=== PATIENT | male | born 1980 | race Caucasian/White ===

== ENCOUNTER 2018-08-11 01:52 | Emergency (ER) | END 2018-08-11 04:00 | disposition home or self-care (01) ==

== ENCOUNTER 2018-08-22 08:21 | Emergency (ER) | END 2018-08-22 11:05 | disposition home or self-care (01) ==

== ENCOUNTER 2019-03-22 16:06 | Emergency (ER) | payer MEDICAID ==
[~2019-03-22] VITALS: Ht 167.6 cm; Wt 85.0 kg
[~2019-03-22 16:06] MED LIST: ACET500C5 PO; DOCU-144 PO; HYDR-4011 PO; IBUP-1542 PO
[2019-03-22 16:16] VITALS: Ht 167.6 cm; Wt 85.0 kg
[2019-03-22] MEDS ORDERED: KETOROLAC 30 MG INJ IM STA (16:29)
[2019-03-22] MEDS ORDERED: LIDOCAINE 1% (MDV) 20 ML INJ SC ONE (19:00)
[2019-03-22] MEDS ORDERED: BUPIVACAINE 0.5% (SDV) 30 ML INJ INJ ONE (19:00)
--- NOTE | 2019-03-22 21:27 | ERD ---
ER Documentation Chief Complaint Chief Complaint left ankle pain s/p fall last night, no ko HPI 38-year-old male with no significant past medical history presents for left ankle pain status post fall last night. He states that [place] and twisted his ankle. He also hit his forehead and nose on the ground. He admits to 10/10 pain over the left ankle with swelling. Pain is sharp, worse with movement. He has 6/10 pain over the forehead and nose area. There are some cuts over his nose which he cleaned with water. Denies loss of consciousness, denies vomiting. Denies fever, chest pain, shortness of breath, abdominal pain, nausea, vomiting. No other modifying factors noted, no treatment tried at home. ROS All systems reviewed and are negative except as per history of present illness. Medications Home Meds Active Scripts Docusate Sodium* (Colace*) 100 Mg Capsule, 100 MG PO TID, #30 CAP Prov:KESHAWN SAWYER PA-C 08/22/18 Ibuprofen* (Motrin*) 600 Mg Tab, 600 MG PO Q6H PRN for PAIN AND OR ELEVATED T EMP, #30 TAB Prov:KESHAWN SAWYER PA-C 08/22/18 Hydrocodone/Acetaminophen (Alma 5-325 Tablet) 1 Each Tablet, 1 TAB PO Q6H PRN for PAIN, #30 TAB Prov:KESHAWN SAWYER PA-C 08/22/18 Acetaminophen* (Tylophen*) 500 Mg Capsule, 1 CAP PO Q6H PRN for PAIN AND OR ELEVATED TEMP, #20 CAP Prov:DE GOSS PA-C 08/11/18 Allergies Allergies: Coded Allergies: No Known Allergy (Unverified , 08/22/18) PMhx/Soc Medical and Surgical Hx: pt denies Medical Hx History of Surgery: Yes (UMBILICAL HERNIA) Hx Alcohol Use: Yes (social) Hx Substance Use: No Hx Tobacco Use: No Smoking Status: Former smoker FmHx Family History: No coronary disease Physical Exam Vitals Vital Signs Date Temp Pulse Resp B/P (MAP) Pulse Ox O2 O2 Flow FiO2 Time Delivery Rate 03/22/19 99.1 62 20 153/79 98 Room Air 21:15 (103) 03/22/19 99.7 101 20 178/102 98 16:16 (127) Physical Exam Const: No acute distress Head: Atraumatic, no luis sign,no scalp depression noted, ecchymosis noted over the right orbital area Eyes: Normal Conjunctiva, PERRL, EOMI, some ecchymosis around the right eye ENT: Normal External Ears, abrasions noted over the bridge of the nose. no fluid leak from ear canals or nose. moves air well through nares, Oral mucosa moist without signs of trauma or lesions Neck: Full range of motion. No meningismus. no midline tenderness Resp: Clear to auscultation bilaterally, normal respiratory effort Cardio: Regular rate and rhythm, no murmurs, bilateral radial and dorsalis pedis pulses intact Abd: Soft, non tender, non distended. Normal bowel sounds Skin: No petechiae or rashes Back: No midline or flank tenderness Ext: No cyanosis, or edema, 5/5 muscle strength upper and lower extremities, there is decreased range of motion of the left ankle with significant amount of swelling noted, compartments are soft however. Neur: Awake and alert, bilateral upper and lower extremity sensation intact Psych: Normal Mood and Affect Lower Extremity -left: Skin: No laceration, there is abrasion noted over the medial side of the left ankle Compartments: Soft Motor: Full active range of motion hip/knee/decreased range of motion over the left ankle and left foot due to swelling Sensation: Intact to light touch FDWS/MF/LF/P surfaces. Bones: Nontender pelvis/knee/proximal tibia/there is pain to palpation over the left ankle diffusely Joints: There is effusion noted over the left foot, left ankle and left lower leg Pulses/Perfusion: 2+ DP, Capillary refill < 2 seconds Result Diagram: 03/22/19210903/22/192109 Results 24 hrs Laboratory Tests Test 03/22/19 21:10 White Blood Count 9.9 10^3/ul Red Blood Count 4.77 10^6/ul Hemoglobin 15.7 g/dl Hematocrit 47.1 % Mean Corpuscular Volume 98.7 fl Mean Corpuscular Hemoglobin 32.9 pg Mean Corpuscular Hemoglobin Concent 33.3 g/dl Red Cell Distribution Width 13.0 % Platelet Count 209 10^3/UL Mean Platelet Volume 9.8 fl Immature Granulocytes % 0.700 % Neutrophils % 51.8 % Lymphocytes % 32.0 % Monocytes % 14.6 % Eosinophils % 0.3 % Basophils % 0.6 % Nucleated Red Blood Cells % 0.0 /100WBC Immature Granulocytes # 0.070 10^3/ul Neutrophils # 5.1 10^3/ul Lymphocytes # 3.2 10^3/ul Monocytes # 1.5 10^3/ul Eosinophils # 0.0 10^3/ul Basophils # 0.1 10^3/ul Nucleated Red Blood Cells # 0.0 10^3/ul Prothrombin Time 12.5 Sec Prothrombin Time Ratio 1.0 INR International Normalized Ratio 0.92 Activated Partial Thromboplast Time 22.6 Sec Sodium Level 139 mmol/L Potassium Level 4.1 mmol/L Chloride Level 105 mmol/L Carbon Dioxide Level 24 mmol/L Anion Gap 10 Blood Urea Nitrogen 16 mg/dl Creatinine 0.56 mg/dl Est Glomerular Filtrat Rate mL/min > 60 mL/min Glucose Level 94 mg/dl Calcium Level 8.9 mg/dl Total Bilirubin 0.8 mg/dl Direct Bilirubin 0.00 mg/dl Indirect Bilirubin 0.8 mg/dl Aspartate Amino Transf (AST/SGOT) 48 IU/L Alanine Aminotransferase (ALT/SGPT) 52 IU/L Alkaline Phosphatase 101 IU/L Total Protein 7.9 g/dl Albumin 4.2 g/dl Globulin 3.70 g/dl Albumin/Globulin Ratio 1.13 Current Medications Medications Dose Sig/Dariusz Start Time Status Last (Trade) Ordered Route PRN Stop Time Admin Dose Reason Admin Ketorolac 30 mg ONCE STAT 03/22/19 DC 03/22/19 Tromethamine IM 16:29 16:38 (Toradol) 03/22/19 16:31 Lidocaine 20 ml ONCE ONCE 03/22/19 DC (Xylocaine SC 19:00 1% (Mdv) 20 03/22/19 19:01 ml) Bupivacaine 30 ml ONCE ONCE 03/22/19 DC HCl INJ 19:00 (Marcaine 03/22/19 19:01 0.5% (Sdv)) Ondansetron 4 mg BRIDGE ORDER 03/22/19 HCl (Zofran PRN IV 21:30 Inj) NAUSEA/VOMITI 03/23/19 21:29 NG 650 mg ER BRIDGE 03/22/19 Acetaminophen PRN PO 21:30 (Tylenol .MILD PAIN 03/23/19 21:29 Tab) 1-3 OR TEMP Procedures/MDM Medical Decision Making: Differential diagnosis includes but not limited to fracture, dislocation, muscle strain, ligamentous sprain, septic joint, osteomyelitis, gout Patient appeared well on physical exam. There was tenderness over the left ankle Patient was neurovascularly intact, compartment soft There is also abrasion over the bridge of the nose and ecchymosis over the right orbital area ED course: Imaging: X-ray left ankle 3V, read by radiology, Interpreted by me: Triamalleolar fracture of the left ankle with displacement of the distal left tibia and fibula, with severe soft tissue swelling noted, joint space narrowing with severe subluxation of the left tibiotalar joint space X-ray left foot 3V read by radiology, Interpreted by me: Bones: No fracture Joints: No dislocation Foreign body: None X-ray left tib/Fib 2V Interpreted by me: Bones: No fracture Joints: No dislocation Foreign body: None Head CT without IV contrast read per radiology did not show signs of hemorrhage, no lesions noted, no mass effect EKG: Rate/Rhythm: Normal Sinus Rhythm QRS, ST, T-waves: No changes consistent w/ acute ischemia Impression: No evidence of ischemia or arrhythmia CBC: no e/o of systemic infection or severe anemia CMP: no e/o severe acidosis, alkalosis, renal failure, diabetic ketoacidosis, liver disease PT/INR within normal limits PTT mildly elevated at 22.6 Given the severity of the ankle fracture, will call orthopedic surgeon Dr. Borja was consulted. Patient was seen by Dr. Borja, patient's displaced left ankle fracture was reduced, please see his note. Dr. Borja recommended admission for ORIF due to the instability of the fracture call center trainer hospitalist Dr. Coelman was contacted and agreed to admit patient for further care. Disclaimer: Inadvertent spelling and grammatical errors are likely due to EHR/di ctation software use and do not reflect on the overall quality of patient care. Also, please note that the electronic time recorded on this note does not necessarily reflect the actual time of the patient encounter. Departure Diagnosis: Primary Impression: Displaced trimalleolar fracture of left ankle Encounter type: initial encounter Fracture type: closed Qualified Codes: S82.852A - Displaced trimalleolar fracture of left lower leg, initial encounter for closed fracture Additional Impressions: Head injury Encounter type: initial encounter Qualified Codes: S09.90XA - Unspecified injury of head, initial encounter Abrasion of ankle Encounter type: initial encounter Laterality: left Qualified Codes: S90.512A - Abrasion, left ankle, initial encounter Facial abrasion Encounter type: initial encounter Qualified Codes: S00.81XA - Abrasion of other part of head, initial encounter Condition: Serious MITUL CARTER DO Mar 22, 2019 21:27
--- NOTE | 2019-03-22 21:28 | CONS ---
Assessment/Plan Assessment/Plan Hospital Course (Demo Recall) 38-year-old male with bimalleolar SER type IV left ankle fracture. It is closed. This is an unstable ankle fracture pattern. Strongly recommended that he undergo ORIF of the left ankle fracture after preliminary closed reduction in the ED. Reviewed the benefits and risks with the patient. They include but not limited to complication of anesthesia, medical complications, cardiopulmonary complicati ons, DVT, , infection, malunion, nonunion, hardware failure, neurovascular injury, stiffness, pain, traumatic arthritis, and need for repeat surgery. Patient understood these benefits and risks and wished to proceed with surgery. Plan: Closed reduction and short leg splint in the emergency department Strict elevation and icing Pain control Plan for open reduction internal fixation of left bimalleolar ankle fracture. We will plan for Friday as there is no operating room availability for Friday. N.p.o. at midnight prior to surgery Assessment/Plan (Daily) Procedure: Hematoma block and closed reduction and short leg splint left ankle fracture Anteromedial aspect of the left ankle was prepped with alcohol. 3 mL of 1% lidocaine was infiltrated into the skin and subcutaneous tissue. Once this was done approximately 15 mL of a 1: 1 ratio of 1% lidocaine and 0.5% bupivacaine was injected into the ankle joint and fracture. Hematoma was visualized confirming positioning of the needle. Local anesthetic fluid freely. Once the ankle was numb we proceeded fashion splint and closed reduced. The left lower extremity was wrapped in Webril. Special attention was given to the medial and lateral malleoli as well as the heel. A sugar tong splint of plaster was fashioned with a three-point mold. The ankle was felt to be reduced. Ankle is held in neutral dorsiflexion with a three-point mold until the plaster hardened. General: Awake, alert, in no acute distress, pleasant and cooperative Heart: regular rhythm Lungs: breathing comfortably, no tachypnea or dyspnea Sensation intact to light touch in a sural, saphenous, deep peroneal, superficial peroneal, medial and lateral plantar nerve distribution. Motor is intact, patient able to extend and flex great toe. Brisk capillary refill. Consultation Date/Type/Reason Admit Date/Time Date of Consultation: Mar 22, 2019 Reason for Consultation Left ankle fracture Date/Time of Note DATE: 03/22/19 TIME: 21:03 Hx of Present Illness 38-year-old male who was walking in [place] over some rocks along the beach. He tripped and twisted his left ankle. He had severe pain. He was unable to bear weight. He presented to the emergency department [facility] where orthopedics was consulted. He also fell on his face and had superficial abrasions and ecchymosis around his right eye. Patient denies any loss of consciousness or any dizziness or lightheadedness. Patient also complains of pain in the left ankle. Denies any numbness and tingling. Pain is rated 10/10. 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 No history of previous injury to the left lower extremity. Patient denies fever, chills, shortness of breath, chest pain, nausea/vomiting, constipation, diarrhea, numbness, and tingling. Past Medical History Denies past medical history Home Meds Active Scripts Docusate Sodium* (Colace*) 100 Mg Capsule, 100 MG PO TID, #30 CAP Prov:KESHAWN SAWYER PA-C 08/22/18 Ibuprofen* (Motrin*) 600 Mg Tab, 600 MG PO Q6H PRN for PAIN AND OR ELEVATED TEMP, #30 TAB Prov:KESHAWN SAWYER PA-C 08/22/18 Hydrocodone/Acetaminophen ([place]ion 5-325 Tablet) 1 Each Tablet, 1 TAB PO Q6H PRN for PAIN, #30 TAB Prov:KESHAWN SAWYER PA-C 08/22/18 Acetaminophen* (Tylophen*) 500 Mg Capsule, 1 CAP PO Q6H PRN for PAIN AND OR ELEVATED TEMP, #20 CAP Prov:DE GOSS PA-C 08/11/18 Allergies: Coded Allergies: No Known Allergy (Unverified , 08/22/18) Past Surgical History Past Surgical Hx: noncontributory Family History Significant Family History: no pertinent family hx Social History Alcohol Use: heavy (6 drinks a week) Smoking Status: Former smoker Drug Use: none Exam/Review of Systems Exam Vitals Vital Signs Date Temp Pulse Resp B/P (MAP) Pulse Ox O2 O2 Flow FiO2 Time Delivery Rate 03/22/19 99.7 101 20 178/102 98 16:16 (127) Exam General: Awake, alert, in no acute distress, pleasant and cooperative Heart: regular rhythm Lungs: breathing comfortably, no tachypnea or dyspnea MUSCULOSKELETAL: Left lower extremity: There is a superficial abrasion over the anteromedial aspect of the ankle. Otherwise the skin is intact. There is significant swelling with ecchymosis along the medial and lateral aspect of the ankle and foot. There is tenderness palpation throughout the ankle. The foot is nontender to palpation. The tibia and mid and proximal fibula are nontender. The knee is nontender with no effusion. Sensation intact to light touch in a sural, saphenous, deep peroneal, superficial peroneal, medial and lateral plantar nerve distribution. Motor is intact, patient able to dorsiflex and plantarflex ankle and extend and flex great toe. Dorsalis Pedis pulse +2, Brisk capillary refill. Compartments are soft. Calves non-tender to palpation bilaterally. Imaging Imaging 3 views of the left ankle, foot, and 2 views of the left tib-fib were personally reviewed: Demonstrate a bimalleolar ankle fracture with significant subluxation of the tibiotalar joint laterally. There is increased medial clear space as well as decreased overlap of the tib-fib. Adams type B/C. SER type IV 3 views postreduction films left ankle were obtained and personally reviewed: Redemonstration of bimalleolar ankle fracture SER type IV. There is near anatomic reduction MACIEL BRIZUELA MD Mar 22, 2019 21:25
[2019-03-22] MEDS ORDERED: ONDANSETRON 4 MG INJ IV PRN ×2 (21:30→22:30)
[2019-03-22] MEDS ORDERED: ACETAMINOPHEN 325 MG TAB PO PRN ×2 (21:30→22:30)
--- NOTE | 2019-03-22 22:21 | HP ---
Date/Time of Note Date/Time of Note DATE: 03/22/19 TIME: 22:20 Assessment/Plan VTE Prophylaxis SCD applied (from Nsg): Yes Pharmacological prophylaxis: NA/contraindicated Pharm contraindication: low risk/ambulating Lines/Catheters IV Catheter Type (from Nrsg): Saline Lock Assessment/Plan Hospital Course This is a 38-year-old male being admitted to the [facility] for: #1 Acute left ankle fracture: X-ray shows: Trimalleolar fracture of the distal left ankle. Significantly displaced fractures of the distal left tibia and fibula. Orthopedic surgery was consulted, evaluated the patient and reduce the patient's fracture. Elevation of the left lower extremity, and ice to the left lower extremity. Further orders as per orthopedic surgery. Patient is tentatively scheduled for surgery on 03/24/2019. He will be kept n.p.o. after midnight on 03/24/2019. Pain management. Patient is a fully functioning independent male. He is able to walk up and down stairs without any shortness of breath or chest pain. His functional capacity is METS greater than 4. He is tentatively cleared for surgery pending chest x- ray which has been ordered for preop. #2 facial trauma: Patient does have superficial bruising and ecchymosis on his face, he does have pending facial CT results. CT of the brain is negative for any acute normalities. We will follow-up with CT results. #3 obesity: We will check hemoglobin A 1C, lipid panel, TSH #4 DVT GI prophylaxis: SCDs, no GI prophylaxis indicated Further treatment strategy will be implemented as per the clinical course. Result Diagram: 03/22/19210903/22/192109 Results 24hrs Laboratory Tests Test 03/22/19 21:10 White Blood Count 9.9 Red Blood Count 4.77 Hemoglobin 15.7 Hematocrit 47.1 Mean Corpuscular Volume 98.7 Mean Corpuscular Hemoglobin 32.9 Mean Corpuscular Hemoglobin Concent 33.3 Red Cell Distribution Width 13.0 Platelet Count 209 Mean Platelet Volume 9.8 Immature Granulocytes % 0.700 H Neutrophils % 51.8 Lymphocytes % 32.0 Monocytes % 14.6 H Eosinophils % 0.3 Basophils % 0.6 Nucleated Red Blood Cells % 0.0 Immature Granulocytes # 0.070 H Neutrophils # 5.1 Lymphocytes # 3.2 H Monocytes # 1.5 H Eosinophils # 0.0 Basophils # 0.1 Nucleated Red Blood Cells # 0.0 Prothrombin Time 12.5 Prothrombin Time Ratio 1.0 INR International Normalized Ratio 0.92 Activated Partial Thromboplast Time 22.6 L Sodium Level 139 Potassium Level 4.1 Chloride Level 105 Carbon Dioxide Level 24 Anion Gap 10 Blood Urea Nitrogen 16 Creatinine 0.56 L Est Glomerular Filtrat Rate mL/min > 60 Glucose Level 94 Calcium Level 8.9 Total Bilirubin 0.8 Direct Bilirubin 0.00 Indirect Bilirubin 0.8 Aspartate Amino Transf (AST/SGOT) 48 H Alanine Aminotransferase (ALT/SGPT) 52 Alkaline Phosphatase 101 Total Protein 7.9 Albumin 4.2 Globulin 3.70 H Albumin/Globulin Ratio 1.13 HPI/ROS Admit Date/Time Admit Date/Time Hx of Present Illness Chief complaint: Fall, left ankle pain, facial pain This is a 38-year-old male with no significant past medical history presents for left ankle pain status post fall last night. He states that [place], slipped and twisted his ankle. He also hit his forehead and nose on the ground. He admits to 10/10 pain over the left ankle with swelling. Pain is sharp, worse with movement. He has 6/10 pain over the forehead and nose area. There are some cuts over his nose which he cleaned with water. Denies loss of consciousness, denies vomiting. Denies fever, chest pain, shortness of breath, abdominal pain, nausea, vomiting. Patient was seen and evaluated by orthopedic surgery in the emergency department and patient had his ankle fracture reduced. Patient was to be admitted to [facility] to undergo surgical repair of the fracture. Prior to his injury, patient states that he is a normally active male who is able to walk up and down stairs without any chest pain or shortness of breath. Patient is a fully functioning independent male. Allergies: NKDA Medications: None ROS Const: As per HPI Eyes : No pain discharge or redness or change in visual acuity ENT: No pain, sore throat, congestion, congestion, dysphagia or discharge Respiratory: No shortness of breath, cough, sputum, wheezing, or pleuritic pain Cardiovascular: No chest pain, palpitation, PND, or edema GI : no change in appetite, abdominal pain, nausea, vomiting, diarrhea, constipation, or change in the color his stool Genitourinary: No dysuria, hematuria, flank pain , discharge or CVA tenderness Musculoskeletal: As per HPI Skin: No rash, bruising or hives Neuro: No headache, dizziness, syncope, seizure, focal weakness Endocrine: No polyuria, polydipsia, temperature intolerance Psych: No hallucination, depression, anxiety or suicidal ideation PMH/Family/Social Past Medical History Medical History: no pertinent history Medications Current Medications Ondansetron HCl (Zofran Inj) 4 mg BRIDGE ORDER PRN IV NAUSEA/VOMITING; Start 03/22/19 at 21:30; Stop 03/23/19 at 21:29 Acetaminophen (Tylenol Tab) 650 mg ER BRIDGE PRN PO .MILD PAIN 1-3 OR TEMP; Start 03/22/19 at 21:30; Stop 03/23/19 at 21:29 Coded Allergies: No Known Allergy (Unverified , 08/22/18) Past Surgical History Past Surgical Hx: noncontributory Family History Significant Family History: no pertinent family hx Social History Alcohol Use: occasionally (6 drinks a week) Smoking Status: Unknown if ever smoked Drug Use: none Exam/Review of Systems Vital Signs Vitals Vital Signs Date Temp Pulse Resp B/P (MAP) Pulse Ox O2 O2 Flow FiO2 Time Delivery Rate 03/22/19 99.1 62 20 153/79 98 Room Air 21:15 (103) Exam Exam General: Patient is a pleasant male currently lying in bed in no acute distress HEENT: Multiple bruising, superficial abrasions noted of the face, ecchymosis noted of the right eyelid, no luis sign Neck: Supple with full range of motion. No rigidity or meningismus Chest: Nontender Lungs: Clear to auscultation bilaterally no crackles rales or wheezing Heart: Normal S1-S2, Regular rhythm and rate. No murmur, S3, or S4 Abdomen: Soft , nontender, nondistended , bowel sounds are present. No guarding no rebound tenderness , No masses or organomegaly. No costovertebral temporal angle mass Extremities: Left lower extremity currently in a cast, patient able to wiggle his toes, skin warm Neurologic: Normal mental status, speech normal, cranial nerves II through XII are intact, motor and sensory are intact, Additional Comments EKG: Rate/Rhythm: Normal Sinus Rhythm QRS, ST, T-waves: No changes consistent w/ acute ischemia Impression: No evidence of ischemia or arrhythmia PROCEDURE: CT Brain without contrast. CLINICAL INDICATION: Trauma. Headache. TECHNIQUE: A CT of the brain without contrast was performed utilizing axial sections from the skull base through the vertex. The patient was scanned without intravenous contrast enhancement. Sagittal and coronal reformatted images were obtained using the data from the axial images. Total exam DLP is 634.23 mGy-cm. CTDIvol is 37.91 mGy. One or more of the following dose reduction techniques were used: Automated exposure control, adjustment of the mA and/or kV according to patient size, use of iterative reconstruction technique. DICOM images are available. COMPARISON: None available FINDINGS: There is normal lilly-white matter differentiation. The ventricles and cisterns are normal. There is no intracranial hemorrhage or space-occupying lesion. There is no skull fracture or lytic lesion. IMPRESSION: 1. Normal noncontrast CT scan of the brain. 2. No intracranial hemorrhage. RPTAT: QQ .Gerardo Beauchamp MD, MD Date Time Electronically viewed and signed by .Gerardo Beauchamp MD, MD on 03/22/2019 21:42 .R/ CC: MITUL CARTER [id number] PROCEDURE: XR Ankle. CLINICAL INDICATION: Left ankle pain. Trauma. TECHNIQUE: Three views of the left ankle were performed. COMPARISON: None. FINDINGS: Disassociation and partial subluxation of the tibiotalar joint space. This is significant and severe in degree. Displaced medial malleolar fracture. Displaced distal left fibular fracture. Mild angulation at the fracture site is noted. On the lateral view there is a fracture of the posterior dorsum of the distal left tibia. Findings are consistent with a trimalleolar fracture. The talar bone and calcaneus are intact. Severe surrounding soft tissue swelling and edema. No radiopaque foreign body. IMPRESSION: 1. Trimalleolar fracture of the distal left ankle. 2. Significantly displaced fractures of the distal left tibia and fibula. 3. Severe surrounding soft tissue swelling and edema appear 4. Significant severe subluxation of the left tibiotalar joint space. RPTAT: HMJB .Timoteo Barnard MD, MD Date Time Electronically viewed and signed by .Timoteo Barnard MD, MD on 03/22/2019 18:04 .B/ CC: MITUL CARTER DO [id number] PROCEDURE: XR Foot. CLINICAL INDICATION: Left foot pain. Trauma. TECHNIQUE: 4 views of the left foot are available for review. COMPARISON: None available FINDINGS: The osseous structures, articular spaces, and surrounding soft tissues are intact. No acute fracture or dislocation is seen. No radiopaque foreign body is identified. Bony mineralization is normal. Fracture of the left ankle is present. IMPRESSION: 1. Unremarkable left foot x-ray series. 2. No acute fracture or dislocation of the left foot pain 3. Significant left ankle fracture, poorly visualized on this study. RPTAT: HMJB .Timoteo Barnard MD, Date Time Electronically viewed and signed by .Timoteo Barnard MD, MD on 03/22/2019 18:05 .B/ CC: MITUL CARTER DO [id number] PROCEDURE: XR Tibia and Fibula. CLINICAL INDICATION: Pain TECHNIQUE: 3 views of the left tibia and fibula are available for review. COMPARISON: None available FINDINGS: Fracture of the distal left tibia and fibula is identified. Fracture of the medial malleolus of the distal left tibia. Mild displacement the tibiotalar joint space. Please refer to left ankle report dictated separately. On the lateral view, significant displacement of the medial malleolus and the distal lateral fibula is noted. There appears to be a tiny chip fracture along the dorsum of the posterior distal tibia. IMPRESSION: 1. Multiple left ankle fractures. Please refer to left ankle report dictated separately. The patient has a trimalleolar fracture of the left ankle. 2. The proximal and mid shaft of the left tibia and fibula are otherwise intact. RPTAT: HMJB .Timoteo Barnard MD, MD Date Time Electronically viewed and signed by .Timoteo Barnard MD, MD on 03/22/2019 18:03 .B/ CC: MITUL CARTER DO [id number] PROCEDURE: XR Left Ankle. CLINICAL INDICATION: Fracture. Post reduction. Left ankle pain. TECHNIQUE: 3 views. Frontal, lateral, and oblique. 03/22/2019. 2054 hours. COMPARISON: 03/22/2019. 1708 hours. FINDINGS: Bone detail is obscured by the overlying cast. There is an acute oblique fracture of the distal shaft of the fibula with satisfactory alignment. There is an acute oblique fracture of the medial malleolus with inferior displacement measuring approximately 0.8 cm. There is a minimally displaced fracture of the posterior malleolus, unchanged. There is no other fracture and there is no dislocation. The talus appears intact. There is no lytic or blastic lesion. There is no radiopaque foreign body. IMPRESSION: 1. Improved position and alignment of the fractures of the medial and lateral malleoli. 2. Unchanged appearance of minimally displaced fracture of the posterior malleolus. 3. Bone detail obscured by the cast. 4. Otherwise unremarkable images of the left ankle. RPTAT: QQ .Gerardo Beauchamp MD, Date Time Electronically viewed and signed by .Gerardo Beauchamp MD, MD on 03/22/2019 21:45 .R/ CC: MACIEL BRIZUELA MD [id number] GANGA ZAPATA Mar 22, 2019 22:21
[2019-03-22] MEDS ORDERED: NACL 0.9% 3 ML SYG IV SCH (22:30)
[2019-03-22] MEDS ORDERED: BISACODYL (EC) 5 MG TAB PO PRN (22:30)
[2019-03-22] MEDS ORDERED: HYDROCODONE/APAP (5/325) TAB PO PRN (22:30)
[2019-03-22] MEDS ORDERED: morphine 2 MG INJ IV PRN (22:30)
[2019-03-22] MEDS ORDERED: DOCUSATE SODIUM 100 MG CAP PO PRN (22:30)
[2019-03-22] MEDS ORDERED: AMPICILLIN/SULB 3 GM/NS (PMX) 100 ML IVPB ONE (23:00)
[2019-03-23] MEDS ORDERED: SOD CHLORIDE 0.9% 1,000 ML IV SCH
--- NOTE | 2019-03-23 00:12 | EN ---
Date/Time of Note Date/Time of Note DATE: 03/23/19 TIME: 00:11 ER Progress Note After reviewing CT of the head and orbits, noted to have orbital wall fracture. At this point we cannot take care of the patient here and needs a higher level of care secondary to oral maxillofacial surgery. Patient will be transferred to [facility] where both a trimalleolar fracture of the ankle and the orbital fracture can be taken care of. JOHN POST. Mar 23, 2019 00:12
[2019-03-23 01:22] VITALS: BP 129/92; PULSE 66; RESP 13
== END 2019-03-23 01:23 | disposition short-term general hospital (02) ==
LOC: FTE 16:06 → CANRESERV 22:10 → CANBEDREQ 22:37 → E/R 03-23 01:23
DX: S82.852A Displaced trimalleolar fracture of left lower leg, initial encounter for closed fracture (principal); S90.512A Abrasion, left ankle, initial encounter; S00.81XA Abrasion of other part of head, initial encounter; S02.81XA Fracture of other specified skull and facial bones, right side, initial encounter for closed fracture; R40.2142 Coma scale, eyes open, spontaneous, at arrival to emergency department; R40.2252 Coma scale, best verbal response, oriented, at arrival to emergency department; R40.2362 Coma scale, best motor response, obeys commands, at arrival to emergency department; R51 Headache; W01.198A Fall on same level from slipping, tripping and stumbling with subsequent striking against other object, initial encounter; Y92.832 Beach as the place of occurrence of the external cause; Z87.891 Personal history of nicotine dependence
CPT/HCPCS: 27840; 70450; 70486; 71045; 73590; 73610; 73630; 80053; 85025; 85610; 85730; 93005; J0295; J1885; J7030; Z7610; 96365; 96372

== ENCOUNTER 2019-03-26 12:41 | Emergency (ER) | payer MEDICAID ==
[~2019-03-26] VITALS: Ht 157.5 cm; Wt 104.0 kg
[2019-03-26 12:57] VITALS: BP 142/76; PULSE 74; RESP 18; Ht 157.5 cm; Wt 104.0 kg
--- NOTE | 2019-03-26 14:01 | ERD ---
ER Documentation Chief Complaint Chief Complaint pt is bib self with c/o left foot pain, arrived with splint in place HPI 38-year-old male presents with history of left ankle trimalleolar fracture. He was seen here 5 days ago and transferred after a fall for treatment of his fracture as well as an orbital fracture. He states that he did get transferred to [facility] but has elective surgery scheduled in 3 days for his ankle. Denies any fevers, vomiting. He is here primarily today because he is having worsening pain in his left ankle in the area splint. Denies any fevers, bleeding, discharge. ROS All systems reviewed and are negative except as per history of present illness. Medications Home Meds Active Scripts Docusate Sodium* (Colace*) 100 Mg Capsule, 100 MG PO TID, #30 CAP Prov:KESHAWN SAWYER PA-C 08/22/18 Ibuprofen* (Motrin*) 600 Mg Tab, 600 MG PO Q6H PRN for PAIN AND OR ELEVATED TEMP, #30 TAB Prov:KESHAWN SAWYER PA-C 08/22/18 Hydrocodone/Acetaminophen ([place] 5-325 Tablet) 1 Each Tablet, 1 TAB PO Q6H PRN for PAIN, #30 TAB Prov:KESHAWN SAWYER PA-C 08/22/18 Acetaminophen* (Tylophen*) 500 Mg Capsule, 1 CAP PO Q6H PRN for PAIN AND OR ELEVATED TEMP, #20 CAP Prov:DE GOSS PA-C 08/11/18 Allergies Allergies: Coded Allergies: No Known Allergy (Unverified , 08/22/18) PMhx/Soc Medical and Surgical Hx: pt denies Medical Hx History of Surgery: Yes (UMBILICAL HERNIA) Anesthesia Reaction: No Hx Neurological Disorder: No Hx Respiratory Disorders: No Hx Cardiac Disorders: No Hx Psychiatric Problems: No Hx Miscellaneous Medical Probl: No Hx Alcohol Use: Yes (social) Hx Substance Use: No Hx Tobacco Use: No Smoking Status: Never smoker FmHx Family History: No diabetes, No coronary disease, No other Physical Exam Vitals Vital Signs Date Temp Pulse Resp B/P (MAP) Pulse Ox O2 O2 Flow FiO2 Time Delivery Rate 03/26/19 98.3 74 18 142/76 98 12:57 (98) Physical Exam Const: No acute distress Head: Atraumatic Eyes: Normal Conjunctiva ENT: Normal External Ears, Nose and Mouth. Neck: Full range of motion. No meningismus. Resp: Clear to auscultation bilaterally Cardio: Regular rate and rhythm, no murmurs Abd: Soft, non tender, non distended. Normal bowel sounds Skin: No petechiae or rashes Back: No midline or flank tenderness Ext: No cyanosis, or edema. Left lower extremity with sugar tong and posterior left ankle splint in place. Cap refill less than 2 seconds. Splint was removed. There is a small abrasion on the dorsum of the left ankle without erythema, discharge. There is diffuse ecchymosis without deformities, signs of ischemia or deficits. Neur: Awake and alert Psych: Normal Mood and Affect Procedures/MDM Patient presents with left ankle pain status post trimalleolar fracture. He has surgery scheduled in 3 days. Is no signs of infection although there is a small abrasion on the dorsum of the ankle suggestive of possibly rubbing from a splint which may be too tight. Splint was replaced although looser than prior and new abrasion was covered and cleansed.. There is no signs of ischemia, deficits or infection. We discharged home with continued follow-up with his orthopedic surgeon and scheduled surgery in 2 days. He should return for fevers, redness, new worsening symptoms. He should continue nonweightbearing status. The patient was stable with no new complaints during the ER course. Clinically, there is no current evidence to suggest meningitis, sepsis, acute abdomen, pneumonia, stroke, acute coronary syndrome, pulmonary embolism, aortic dissection or any other emergent condition appearing to require further evaluation or hospitalization. Patient counseled regarding my diagnostic impression and care plan. Prior to discharge all questions answered. Pt agrees with treatment plan and understands strict return precautions. Pt is instructed to follow up with primary care provider within 24-48 hours. Precautionary instructions provided including instructions to return to the ER if not improving or for any worsening or changing symptoms or concerns. Disclaimer: Inadvertent spelling and grammatical errors are likely due to EHR/dictation software use and do not reflect on the overall quality of patient care. Also, please note that the electronic time recorded on this note does not necessarily reflect the actual time of the patient encounter. Departure Diagnosis: Primary Impression: Fracture, ankle Encounter type: initial encounter Fracture type: closed Laterality: left Qualified Codes: S82.892A - Other fracture of left lower leg, initial encounter for closed fracture Additional Impression: Injury of foot Encounter type: initial encounter Laterality: left Qualified Codes: S99.922A - Unspecified injury of left foot, initial encounter Condition: Stable Patient Instructions: Fracture, Ankle (General) Additional Instructions: Va al rosado doctor/ specialista para mas evaluacon en el proximo semana. posiblemente necesita autorizado de rosado doctor primario para specialista. Regresa para fiebre, o mas o nueva simptomas. AJIT MOLINA MD Mar 26, 2019 14:01
== END 2019-03-26 15:01 | disposition home or self-care (01) ==
LOC: FTE 12:41
DX: S82.892A Other fracture of left lower leg, initial encounter for closed fracture (principal); X58.XXXA Exposure to other specified factors, initial encounter; Y92.9 Unspecified place or not applicable
CPT/HCPCS: 29515; Z7502

== ENCOUNTER 2019-03-30 06:14 | Emergency (ER) | payer MEDICAID ==
[~2019-03-30] VITALS: Ht 167.6 cm; Wt 88.6 kg
[2019-03-30 06:21] VITALS: Ht 167.6 cm; Wt 88.6 kg
--- NOTE | 2019-03-30 07:00 | ERD ---
ER Documentation Chief Complaint Chief Complaint Pt with cast /LLE pain/swelling after having surgery yesterday. Fever HPI 38-year-old gentleman who is postop day 1 from a ORIF of the left ankle. The patient had ankle fracture secondary to inversion injury. He had surgery at [facility] yesterday. Patient notes some swelling and throbbing and discomfort to the left lower extremity. He states that he feels like his cast is way too tight. He is having numbness and tingling with his toes. Patient was noted to have a low-grade fever at triage but denies any fever at home. It was rechecked and is normal. He denies any chest pain or shortness of breath. Symptoms are moderate. During the patient's encounter translation services were utilized Language: Beninese Source: Video ROS All systems reviewed and are negative except as per history of present illness. Medications Home Meds Active Scripts Docusate Sodium* (Colace*) 100 Mg Capsule, 100 MG PO TID, #30 CAP Prov:KESHAWN SAWYER PA-C 08/22/18 Ibuprofen* (Motrin*) 600 Mg Tab, 600 MG PO Q6H PRN for PAIN AND OR ELEVATED TEMP, #30 TAB Prov:KESHAWN SAWYER PA-C 08/22/18 Hydrocodone/Acetaminophen ([place] 5-325 Tablet) 1 Each Tablet, 1 TAB PO Q6H PRN for PAIN, #30 TAB Prov:KESHAWN SAWYER PA-C 08/22/18 Acetaminophen* (Tylophen*) 500 Mg Capsule, 1 CAP PO Q6H PRN for PAIN AND OR ELEVATED TEMP, #20 CAP Prov:DE GOSS PA-C 08/11/18 Allergies Allergies: Coded Allergies: No Known Allergy (Unverified , 08/22/18) PMhx/Soc History of Surgery: Yes (UMBILICAL HERNIA, LEFT ANKLE) Anesthesia Reaction: No Hx Neurological Disorder: No Hx Respiratory Disorders: No Hx Cardiac Disorders: No Hx Psychiatric Problems: No Hx Miscellaneous Medical Probl: No Hx Alcohol Use: Yes (social) Hx Substance Use: No Hx Tobacco Use: No Smoking Status: Current some day smoker FmHx Family History: No diabetes Physical Exam Vitals Vital Signs Date Temp Pulse Resp B/P (MAP) Pulse Ox O2 O2 Flow FiO2 Time Delivery Rate 03/30/19 99.5 06:48 03/30/19 100.6 86 18 146/84 96 06:21 (104) Physical Exam General: Well developed, well nourished, no acute distress Head: Normocephalic, atraumatic. Eyes: EOM intact ENT: Moist mucous membranes Neck: Full ROM Respiratory: No respiratory distress Cardiovascular: Well perfused distally Abdominal: Nondistended : Deferred MSK: Left lower extremity is in a postoperative splint. The dressing was taken down. The skin is well-appearing. Bilateral surgical wounds are intact without dehiscence drainage or discharge. Normal postoperative swelling and ecchymoses is noted with mild warmth but no erythema or streaking. Tissues are soft compartments are soft and patient has strong distal pulses with good capillary refill. Symptoms dramatically improved after dressing was taken down Neurologic: Alert and oriented, moving all extremities, normal speech, steady gait Skin: No rash Psych: Normal mood Procedures/MDM Patient presents with postoperative pain. He is describing pain and throbbing and numbness and tingling to the left lower extremity. When the dressing was taken down the patient has dramatic and almost immediate relief of the pressure. This is likely secondary to postoperative swelling and likely a too tight dressing related to his splint. It should be noted that the patient did have a low-grade temperature at triage. Unclear etiology as the patient had a recheck only several minutes later it was normal. Patient does not describe any fevers at home. Clinically he has no signs or symptoms concerning for infection. The patient is only postop day 1. No signs or symptoms concerning for DVT. Timeframe would not make sense either. Patient has no signs or symptoms concerning for pneumonia or atelectasis. I do not believe laboratory testing or other diagnostic imaging is necessary. The patient's symptoms are lately resolved with changing of his dressing. The splint was reapplied and the patient can be safely discharged with his surgical follow-up as necessary. Departure Diagnosis: Primary Impression: Encounter for postoperative wound check Condition: Good Patient Instructions: Post Op Wound Check, General, Post Op Wound Check, Pain [facility] Usted se conner hecho un examen mdico de control que le indica que no est en grace condicin que requiera tratamiento urgente en el Departamento de Emergencia. Un estudio ms profundo y el tratamiento de rosado condicin pueden esperar sin ningn riesgo hasta que usted sea atendida/o en el consultorio de rosado mdico o grace clnica. Es responsabilidad suya arreglar grace ty para el seguimiento del sherif. MANEJO DE CONDICIONES NO URGENTES EN EL FUTURO 1) Si usted tiene un mdico de atencin primaria: Usted debera llamar a rosado mdico de atencin primaria antes de venir al departamento de emergencia. Despus de las horas de consultorio, rosado doctor o rosado asociado/a est disponible por telfono. El mdico o enfermero de johan en el servicio telefnico puede asesorarle por griselda medio para atender el problema, o c aso contrario se puede programar grace ty. 2) Si usted no tiene un mdico de atencin primaria: Llame al mdico o clnica de referencia que aparece abajo jef las horas de consultorio para hacer grace ty para que le vean. CLINICAS: [facility] [phone] [address] [facility] [phone] [address] [facility]. [place] [phone] [address] [facility]. [facility] [phone] [facility]. [place] [id number] [phone] [facility]. [phone] [facility] () Usted se conner hecho un examen mdico de control que le indica que no est en grace condicin que requiera tratamiento urgente en el Departamento de Emergencia. Un estudio ms profundo y el tratamiento de rosado condicin pueden esperar sin ningn riesgo hasta que usted sea atendida/o en el consultorio de rosado mdico o grace clnica. Es responsabilidad suya arreglar grace ty para el seguimiento del sherif. MANEJO DE CONDICIONES NO URGENTES EN EL FUTURO 1) Si usted tiene un mdico de atencin primaria: Usted debera llamar a rosado mdico de atencin primaria antes de venir al departamento de emergencia. Despus de las horas de consultorio, rosado doctor o rosado asociado/a est disponible por telfono. El mdico o enfermero de johan en el servicio telefnico puede asesorarle por griselda medio para atender el problema, o c aso contrario se puede programar grace ty. 2) Si usted no tiene un mdico de atencin primaria: Llame al mdico o condado institucions de referencia que aparece abajo jef las horas de consultorio para hacer grace ty para que le vean. SI USTED NO PUEDE PAGAR PARA HANNAH UN MEDICO puede ir a: [facility] [address] [place] [address] [facility] [address] [place] [address] [facility] [address] [place] [address] [facility] [address] [place], [place] [id number] Additional Instructions: Llame al doctor MAANA y daniel grace TY PARA DENTRO DE 2-3 CRUM.Dgale a la secretaria que nosotros le instruimos hacer esta ty.Avise o llame si rosado condicin se empeora antes de la ty. Regresa aqui si peor o no mejor. FLORENTINO OLGUIN MD Mar 30, 2019 07:00
[2019-03-30 07:40] VITALS: BP 131/78; PULSE 86; RESP 17
== END 2019-03-30 07:41 | disposition home or self-care (01) ==
LOC: E/R 06:14
DX: Z48.01 Encounter for change or removal of surgical wound dressing (principal); F17.210 Nicotine dependence, cigarettes, uncomplicated
CPT/HCPCS: 99281

== ENCOUNTER 2019-05-06 13:00 | Emergency (ER) | payer MEDICAID ==
[~2019-05-06] VITALS: Ht 152.4 cm; Wt 86.4 kg
[2019-05-06 13:09] VITALS: BP 147/84; PULSE 74; RESP 16; Ht 152.4 cm; Wt 86.4 kg
--- NOTE | 2019-05-06 13:40 | ERD ---
ER Documentation Chief Complaint Chief Complaint popped blisters x3 underneath tape: p surg repair of hernia 04/30/19 HPI Patient is a 38-year-old male who presents the ER for concerns to his abdominal wound status post hernia repair surgery on 04-30-19. Patient states he took off his dressing today and attempts to clean his wounds when the tape caused 1 of the blisters which formed to bleed. Patient states he does not have wound care supplies at home. Patient has no fevers or chills. Patient has no nausea, vomiting, diarrhea. Patient states his last bowel was this morning. Patient reports intermittent abdominal pain however he states it is controlled. Patient has a follow-up appointment with his surgeon at [facility] on this upcoming Friday. ROS All systems reviewed and are negative except as per history of present illness. Medications Home Meds Active Scripts Docusate Sodium* (Colace*) 100 Mg Capsule, 100 MG PO TID, #30 CAP Prov:KESHAWN SAWYER PA-C 08/22/18 Ibuprofen* (Motrin*) 600 Mg Tab, 600 MG PO Q6H PRN for PAIN AND OR ELEVATED TEMP, #30 TAB Prov:KESHAWN SAWYER PA-C 08/22/18 Hydrocodone/Acetaminophen ([place] 5-325 Tablet) 1 Each Tablet, 1 TAB PO Q6H PRN for PAIN, #30 TAB Prov:KESHAWN SAWYER PA-C 08/22/18 Acetaminophen* (Tylophen*) 500 Mg Capsule, 1 CAP PO Q6H PRN for PAIN AND OR ELEVATED TEMP, #20 CAP Prov:DE GOSS PA-C 08/11/18 Allergies Allergies: Coded Allergies: No Known Allergy (Unverified , 08/22/18) PMhx/Soc History of Surgery: Yes (UMBILICAL HERNIA, LEFT ANKLE) Anesthesia Reaction: No Hx Neurological Disorder: No Hx Respiratory Disorders: No Hx Cardiac Disorders: No Hx Psychiatric Problems: No Hx Miscellaneous Medical Probl: No Hx Alcohol Use: Yes (social) Hx Substance Use: No Hx Tobacco Use: No FmHx Family History: No diabetes Physical Exam Vitals Vital Signs Date Temp Pulse Resp B/P (MAP) Pulse Ox O2 O2 Flow FiO2 Time Delivery Rate 05/06/19 98.4 74 16 147/84 96 13:09 (105) Physical Exam GENERAL: Well-developed, well-nourished male. Appears in no acute distress. HEAD: Normocephalic, atraumatic. EYES: Pupils are equally reactive bilaterally. EOMs grossly intact. No conjunctival erythema. NECK: Supple. No meningismus. Normal range of motion of the neck. LUNG: Clear to auscultation bilaterally. No rhonchi, wheezing, rales or coarse breath sounds. HEART: Regular rate and rhythm. No murmurs, rubs or gallops. ABDOMEN: 5 [place] noted within the umbilical incision. No wound dehiscence. No bleeding or discharge. 2 wounds noted on bilateral lateral aspects of abdomen. Mild bleeding noted from the left wound. No wound dehiscence. Appears that the blister may have popped. Mild ecchymosis noted throughout the abdomen. Abdomen is soft, nondistended. Minimally tender to palpation in all 4 quadrants. Positive bowel sounds in all four quadrants. No rebound tenderness, no guarding. (-) McBurney's point tenderness. No CVA tenderness. EXTREMITIES: Equal pulses bilaterally. No peripheral clubbing, cyanosis or edema. No unilateral leg swelling. NEUROLOGIC: Alert and oriented. Moving all four extremities without any difficulty. Normal speech. Steady gait. SKIN: Normal color. Warm and dry. No rashes or lesions. Procedures/MDM MEDICAL DECISION MAKING: This is a 38-year-old male who presents the ER for concerns of a wound check to his abdominal incisions after the umbilical hernia repair surgery. Vital signs were reviewed. Patient is afebrile. Patient reports normal bowel movements. Low suspicion for obstruction. Overall, the patient's wounds do appear to be healing appropriately with no signs of acute infection or wound dehiscence. Wound care was performed here. Wounds were cleansed and dressed appropriately. Patient has an appointment with his surgeon this upcoming Friday. Patient advised to follow-up with surgeon for additional wound care instructions. Patient also requesting abdominal binder as he states the abdominal binder he was given is too large. Abdominal binder was ordered and technology advisor applied. DISCHARGE: At this time, the patient is stable for discharge and outpatient management. Post-procedural wound care was discussed with the patient. I have instructed the patient to promptly return to the ER for any new or worsening symptoms including increasing pain, fever, warmth, redness or swelling. The patient and/or family expressed understanding of and agreement with this plan. All questions were answered. Home care instructions were provided. Disclaimer: Inadvertent spelling and grammatical errors are likely due to EHR/dictation software use and do not reflect on the overall quality of patient care. Also, please note that the electronic time recorded on this note does not necessarily reflect the actual time of the patient encounter. Departure Diagnosis: Primary Impression: Encounter for wound re-check Additional Impression: S/P hernia repair Condition: Fair Patient Instructions: Wound Care, Post Op Wound Check, Pain Referrals: [facility] YOU HAVE RECEIVED A MEDICAL SCREENING EXAM AND THE RESULTS INDICATE THAT YOU DO NOT HAVE A CONDITION THAT REQUIRES URGENT TREATMENT IN THE EMERGENCY DEPARTMENT. FURTHER EVALUATION AND TREATMENT OF YOUR CONDITION CAN WAIT UNTIL YOU ARE SEEN IN YOUR DOCTORS OFFICE WITHIN THE NEXT 1-2 DAYS. IT IS YOUR RESPONSIBILITY TO MAKE AN APPOINTMENT FOR FOLOW-UP CARE. IF YOU HAVE A PRIMARY DOCTOR --you should call your primary doctor and schedule an appointment IF YOU DO NOT HAVE A PRIMARY DOCTOR YOU CAN CALL OUR PHYSICIAN REFERRAL HOTLINE AT IF YOU CAN NOT AFFORD TO SEE A PHYSICIAN YOU CAN CHOSE FROM THE FOLLOWING [facility] [address] [facility]. [facility] [address] [facility]. [facility] [address] [facility] [address] [facility] [facility] [address] [facility]. [facility]. [address] [facility] [facility] YOU HAVE RECEIVED A MEDICAL SCREENING EXAM AND THE RESULTS INDICATE THAT YOU DO NOT HAVE A CONDITION THAT REQUIRES URGENT TREATMENT IN THE EMERGENCY DEPARTMENT. FURTHER EVALUATION AND TREATMENT OF YOUR CONDITION CAN WAIT UNTIL YOU ARE SEEN IN YOUR DOCTORS OFFICE WITHIN THE NEXT 1-2 DAYS. IT IS YOUR RESPONSIBILITY TO MAKE AN APPOINTMENT FOR FOLOW-UP CARE. IF YOU HAVE A PRIMARY DOCTOR --you should call your primary doctor and schedule and appointment IF YOU DO NOT HAVE A PRIMARY DOCTOR YOU CAN CALL OUR PHYSICIAN REFERRAL HOTLINE AT . IF YOU CAN NOT AFFORD TO SEE A PHYSICIAN YOU CAN CHOSE FROM THE FOLLOWING [facility] INSTITUTIONS: [facility] [address] [place] [address] [facility] [address] [place] [address] [facility] [address] [place] [address] Additional Instructions: Follow up with your surgeon as scheduled for next week. Call your primary care doctor TOMORROW for an appointment during the next 1-2 days.See the doctor sooner or return here if your condition worsens before your appointment time. CAMI WRIGHT PA-C May 06, 2019 13:40
== END 2019-05-06 13:30 | disposition home or self-care (01) ==
LOC: E/R 13:00
DX: Z48.01 Encounter for change or removal of surgical wound dressing (principal); Z98.890 Other specified postprocedural states
CPT/HCPCS: Z7502; Z7610; 99281